=== PATIENT | female | born 1985 | race Caucasian/White ===

== ENCOUNTER → 2017-01-19 | Day surgery (SDC) | payer OTHER | END | disposition home or self-care (01) | LOC: FAS 09:07 | DX: G56.01 Carpal tunnel syndrome, right upper limb (principal); F41.9 Anxiety disorder, unspecified; F32.9 Major depressive disorder, single episode, unspecified; F17.210 Nicotine dependence, cigarettes, uncomplicated; K21.9 Gastro-esophageal reflux disease without esophagitis; Z98.890 Other specified postprocedural states; Z79.899 Other long term (current) drug therapy | CPT/HCPCS: 84703; J1885; J2270; J2405; J2704; J3010 ==